=== PATIENT | male | born 1960 | race Caucasian/White ===

== ENCOUNTER 2016-09-01 17:49 | Emergency (ER) | payer BC ==
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
--- OUTSIDE RECORDS SUMMARY | 2016-09-01 18:23 | XMS REPORT | Summary of Care ---
:1960 Author Organization [facility] Address [address] [place] [id number]- Care Team Providers Name Role Phone Artemio Jose L Contreras Primary Care Physician Encounter Date(s): 09/25/15 - 09/25/[address] [address]- [facility] Final: Derangement of posterior horn of medial meniscus due to old tear or injury, right knee Final: Chondromalacia patellae, right knee Final: Chondromalacia, right knee Discharge Disposition: 01 Discharged to Home or Self Care Attending Physician: Yevgeniy Field MD Admitting Physician: Yevgeniy Field MD Vital Signs Most recent to oldest 1 2 3 [Reference Range]: Temperature Temporal Artery 37.0 DegC 37.0 DegC 37.0 DegC [36-38 DegC] (09/25/15 12:46 PM) (09/25/15 11:46 AM) (09/25/15 11:35 AM) Heart Rate Monitored [60-100 50 bpm 46 bpm 48 bpm bpm] *LOW* *LOW* *LOW* (09/25/15 12:46 PM) (09/25/15 12:27 PM) (09/25/15 11:46 AM) Respiratory Rate [12-20 br/min] 16 br/min 16 br/min 16 br/min (09/25/15 12:46 PM) (09/25/15 12:27 PM) (09/25/15 11:46 AM) SpO2 98 % 99 % 98 % (09/25/15 12:46 PM) (09/25/15 12:27 PM) (09/25/15 11:46 AM) SpO2 Location Right hand Left hand Left hand (09/25/15 12:27 PM) (09/25/15 11:35 AM) (09/25/15 10:45 AM) Blood Pressure [90-130/60-90 132/80mmHg 127/89mmHg 138/80mmHg mmHg] *HI* (09/25/15 12:27 PM) *HI* (09/25/15 12:46 PM) (09/25/15 11:46 AM) Most recent to oldest [Reference Range]: 1 2 3 Height/Length Measured 188 cm (09/25/15 8:11 AM) Height/Length Estimated 188 cm 188 cm (09/25/15 8:11 AM) (09/23/15 12:30 PM) Weight Estimated 86 kg 86 kg (09/25/15 8:11 AM) (09/23/15 12:30 PM) Weight Dosing 84.8 kg (09/25/15 8:11 AM) Weight Measured 84.8 kg (09/25/15 8:11 AM) BSA Measured 2.11 m2 (09/25/15 8:11 AM) BSA Estimated 2.12 m2 (09/25/15 8:11 AM) Body Mass Index Measured 23.99 kg/m2 (09/25/15 8:11 AM) Body Mass Index Estimated 24.33 kg/m2 (09/25/15 8:11 AM) Problem List Condition Effective Dates Status Health Status Informant Hypertension(Confirmed) Active patient Allergies, Adverse Reactions, Alerts No Known Medication Allergies Medications Coumadin 5 mg, Oral, Daily, Monday -Monday, 0 Refill(s), Start Date: 07/07/15 14:08:00 CDT Special Instructions: Monday -Monday Start Date: 07/07/15 Status: OrderedCoumadin 2.5 mg oral tablet 1 tab(s), Oral, Monday, 0 Refill(s), Start Date: 09/23/15 12:36:00 CDT Start Date: 09/23/15 Status: OrderedHCTZ 37.5/12.5, Oral, Daily, 0 Refill(s), Start Date: 09/23/15 13:06:00 CDT Start Date: 09/23/15 Status: Orderedhydrochlorothiazide 12.5 mg oral tablet tab(s), Oral, Daily, 0 Refill(s), Start Date: 07/07/15 14:06:00 CDT Start Date: 07/07/15 Stop Date: 09/23/15 Status: Discontinuedmetoprolol succinate 25 mg, Oral, Daily, 0 Refill(s), Start Date: 07/07/15 14:07:00 CDT Start Date: 07/07/15 Status: OrderedNorco 5 mg-325 mg oral tablet 1 tab(s), Oral, q6hr interval, X 10 days, # 40 tab(s), 0 Refill(s), Start Date: 09/25/15 9:39:00 CDT, [facility] [place] Start Date: 09/25/15 Stop Date: 10/05/15 Status: CompletedsulfaSALAzine 1,000 mg, Oral, Daily, 0 Refill(s), Start Date: 07/07/15 14:08:00 CDT Start Date: 07/07/15 Status: OrderedtraMADol 50 mg oral tablet 1 tab(s), Oral, q12hr, # 30 tab(s), 0 Refill(s), Start Date: 09/28/15 12:22:00 CDT, [facility] [email or web address] [place] Start Date: 09/28/15 Status: Orderedzolpidem 10 mg oral tablet 1 tab(s), Oral, HS, PRN for sleep, 0 Refill(s), Start Date: 10/09/15 10:07:00 CDT Start Date: 10/09/15 Status: Ordered Results Patient Viewable Results Most recent to oldest 1 2 3 [Reference Range]: AN - Fi O2 56 % % 59 % % 61 % % (09/25/15 10:40 AM) (09/25/15 10:35 AM) (09/25/15 10:30 AM) Immunizations No data available for this section Procedures Procedure Date Related Diagnosis Body Site Arthroscopy Knee (Right, Knee R)1 09/25/15 Cystectomy Heart valve replacement2 1auto-populated from documented surgical [id number]/2008 Social History No data available for this section Assessment and Plan No data available for this section
--- OUTSIDE RECORDS SUMMARY | 2016-09-01 18:23 | XMS REPORT | Summary of Care ---
:1960 Author Organization [facility] Address [address] [place] [address] Care Team Providers Name Role Phone Jose L Ulloa Primary Care Physician Encounter Date(s): 09/28/15 - 09/28/15 [facility] [address], [address] [place], [place] [address] Discharge Disposition: Discharged to Home or Self Care Attending Physician: Yevgeniy Field MD Referring Physician: Yevgeniy Field MD Vital Signs No data available for this section Problem List Condition Effective Dates Status Health [...] Refill(s), Start Date: 09/25/15 9:39:00 CDT, [facility] [place] [place] Start Date: 09/25/15 Stop Date: 10/05/15 Status: CompletedsulfaSALAzine 1,000 mg, Oral, Daily, 0 Refill(s), Start Date: 07/07/15 14:08:00 CDT Start Date: 07/07/15 Status: OrderedtraMADol 50 mg oral tablet 1 tab(s), Oral, q12hr, # 30 tab(s), 0 Refill(s), Start Date: 09/28/15 12:22:00 CDT, [facility] [place] [place] Start Date: 09/28/15 Status: Orderedzolpidem 10 mg oral tablet 1 tab(s), Oral, HS, PRN for sleep, 0 Refill(s), Start Date: 10/09/15 10:07:00 CDT Start Date: 10/09/15 Status: Ordered Results No data available for this section Immunizations No data available for this section Procedures Procedure Date Related Diagnosis Body Site Arthroscopy Knee (Right, Knee R)1 09/25/15 Cystectomy Heart valve replacement2 1auto-populated from documented surgical etsq605/2008 Social History No data available for this section Assessment and Plan No data available for this section
--- OUTSIDE RECORDS SUMMARY | 2016-09-01 18:23 | XMS REPORT | Continuity of Care Document ---
:1960 Author Organization [facility] ([facility]) Address [address] [place] [address] Phone [phone] Care Team Providers Name Role Phone Umair Parra Primary Care Provider [phone] Source Comments This disclosure is being made pursuant to the Care Everywhere program, applicable federal and state laws, and may not contain all informaitonavailable regarding this patient.[facility] ([facility]) Active Allergies and Adverse Reactions No Active Allergies Current Medications Prescription Sig. Disp. Refills Start Date End Date Status sulfaSALAzine take 500 mg by Active (AZULFIDINE) 500 mg mouth 4 times tablet daily. metoPROLol (LOPRESSOR) 25 take 25 mg by mouth Active mg tablet 2 times daily. TRIAMTERENE-HYDROCHLOROTH take by mouth Active IAZID PO daily. warfarin (COUMADIN) 2.5 take 2.5 mg by Active mg tablet mouth daily. Take 2.5 mg Sat and SunTake 5 mg Mon-Fri Active Problems Problem Noted Date Aortic valve disorders 02/08/2008 Social History Tobacco Use Types Packs/Day Years Used Date Never Assessed Last Filed Vital Signs Vital Sign Reading Time Taken Blood Pressure 152/93 12/12/2008 10:53 AM CDT Pulse 63 02/08/2008 11:54 AM CDT Temperature 36.1 C (97 F) 12/12/2008 10:53 AM CDT Respiratory Rate 18 02/08/2008 11:54 AM CDT Height 1.88 m (6' 2.01") 02/08/2008 11:54 AM CDT Weight 79.969 kg (176 lb 4.8 oz) 12/12/2008 10:53 AM CDT Body Mass Index 22.63 12/12/2008 10:53 AM CDT Oxygen Saturation - - Plan of Care Health Maintenance Due Date Last Done Comments HCV Screening 1960 Hepatitis B Vaccine (1 of 3 - Primary Series) 1960 Tdap Vaccine 1969 Lipid Disorder Screening 01/24/1976 MMR Vaccine 01/24/1976 Td Vaccine 01/24/1976 Pneumococcal Vaccine (1 of 3 - PCV13) 1977 Colonoscopy 2008 Prostate Cancer Screening 01/24/2008 Influenza Vaccine: Seasonal (#1) 11/23/2015 Results from Last 3 Months Not on file
[2016-09-01 20:10] VITALS: BP 124/79
== END 2016-09-01 18:18 | disposition home or self-care (01) ==
LOC: ER 17:49
DX: T63.443A Toxic effect of venom of bees, assault, initial encounter (principal); I10 Essential (primary) hypertension